=== PATIENT | male | born 1970 | race Caucasian/White ===

== ENCOUNTER 2023-11-21 23:17 | Emergency (ER) | payer BC ==
[~2023-11-21] VITALS: Ht 180.3 cm; Wt 78.0 kg
[2023-11-21 23:34] VITALS: BP 118/73; PULSE 74; RESP 20; TEMP 98.8; O2SAT 100
== END 2023-11-22 00:35 | disposition home or self-care (01) ==
LOC: ER 23:17
DX: D17.9 Benign lipomatous neoplasm, unspecified (principal); E11.9 Type 2 diabetes mellitus without complications
CPT/HCPCS: 99281